=== PATIENT | female | born 1935 | race African-American/Black ===

== ENCOUNTER 2017-01-25 05:50 | Day surgery (SDC) | payer MEDICARE, MEDICAID ==
[~2017-01-25] VITALS: Ht 158.8 cm; Wt 87.5 kg
[~2017-01-25 05:50] MED LIST: ATOR20TA65 PO; CARV12.545 PO; DILT60TA35 PO; DIPH25CA83 PO; FOLI1TAB63 PO; INSLAN SQ; INSU100I7 SQ; MEDR10TA PO; MEDR10TA11 PO; METO-293 PO; OMEP20TA80 PO; REPA1TAB5 PO; SEVE800T PO
[2017-01-25] MEDS ORDERED: SODIUM CHLORIDE 0.9% 500 ML IV ONE (06:45)
[2017-01-25 06:46] LABS: BASOPHILS % 0.6 % (0.0-2.0); EOSINOPHILS % 1.7 % (0.0-5.0); HEMATOCRIT. 29.4 % (36.0-48.0); HEMOGLOBIN. 9.8 g/dL (12.0-16.0); LYMPHOCYTES % 13.8 % (20.0-50.0); MEAN CORPUSCULAR HEMOGLOBIN 31.6 pg (28.0-32.0); MEAN CORPUSCULAR HGB CONC 33.1 g/dL (31.0-37.0); MEAN CORPUSCULAR VOLUME 95.5 fL (81.0-99.0); MEAN PLATELET VOLUME 8.3 fl (7.4-10.4); MONOCYTES % 9.9 % (2.0-8.0); PLATELET 179 x1000/uL (130-400); RED BLOOD CELL COUNT 3.08 mill/uL (4.2-5.4); RED CELL DISTRIBUTION WIDTH 14.4 % (11.6-14.6)
[2017-01-25 06:51] LABS: PARTIAL THROMBOPLASTIN TIME 24.5 sec (24.0-34.0); PROTHROMBIN TIME 10.7 sec
[2017-01-25] MEDS ORDERED: SUCCINYLCHOLINE CHLORIDE 200MG/10ML VIAL IV ONE (07:00)
[2017-01-25] MEDS ORDERED: LIDOCAINE HCL 1% 20ML VIAL (Pyxis) INJ ONE (07:01)
[2017-01-25] MEDS ORDERED: PROPOFOL 200MG/20ML VIAL IV ONE (07:01)
[2017-01-25] MEDS ORDERED: FENTANYL CITRATE/PF 50MCG/ML 2ML VIAL ONE (07:01)
[2017-01-25 07:06] LABS: HCG SCREEN NEGATIVE
[2017-01-25 07:10] LABS: ALANINE AMINOTRANSFERASE 15 IU/L (13-61); ALBUMIN 3.5 g/dL (3.4-5.0); ANION GAP 13; CALCIUM 9.2 mg/dL (8.5-10.1); CARBON DIOXIDE 35 mEq/L (21-32); CHLORIDE 99 mEq/L (98-107); INDEX HEMOLYSI 1 (1-3); INDEX ICTERIC 1 (1-4); INDEX LIPEMIC 1 (1-3); UREA NITROGEN BLOOD 35 mg/dL (7-21); eGFR 8 mL/min (>60)
[2017-01-25] MEDS ORDERED: PHENYLEPHRINE HCL 10 MG/ML 1ML (IV VIAL) IV ONE (07:28)
[2017-01-25] MEDS ORDERED: ONDANSETRON HCL 4MG/2ML VIAL IV PRN (07:30)
[2017-01-25] MEDS ORDERED: HYDROMORPHONE HCL/PF 2MG/ML CPJ IV PRN (07:30)
[2017-01-25] MEDS ORDERED: MIDAZOLAM HCL 2 MG/2 ML VIAL ONE (07:42)
[2017-01-25] MEDS ORDERED: GABA-529 PO (09:28)
== END 2017-01-25 11:10 | disposition home or self-care (01) ==
LOC: OR 05:50
PROVIDERS: ATTEND Obstetrics & Gynecology
DX: D25.0 Submucous leiomyoma of uterus (principal); I12.0 Hypertensive chronic kidney disease with stage 5 chronic kidney disease or end stage renal disease; N85.00 Endometrial hyperplasia, unspecified; N18.6 End stage renal disease; M19.90 Unspecified osteoarthritis, unspecified site; I50.9 Heart failure, unspecified; G89.29 Other chronic pain; D64.9 Anemia, unspecified; E11.9 Type 2 diabetes mellitus without complications
CPT/HCPCS: 36415; 58558; 80053; 82962; 84703; 85025; 85610; 85730; 86850; 86900; 86901; 88305; 93005; J0330; J2250; J2370; J3010; J3490; J7040; J2704

== ENCOUNTER 2017-02-19 21:50 | Inpatient (IN) | payer MEDICARE, MEDICAID ==
[~2017-02-19] VITALS: Ht 157.5 cm; Wt 87.5 kg
[~2017-02-19 21:50] MED LIST changes: +GABA-529 PO; -MEDR10TA11 PO
[2017-02-19 22:00] VITALS: BP 115/64
[2017-02-19 22:36] VITALS: BP 115/64
[2017-02-19] MEDS ORDERED: ONDANSETRON HCL 4MG/2ML VIAL IV PRN (23:45)
[2017-02-19] MEDS ORDERED: DEXTROSE 50% WATER 50ML SYRINGE IV PRN (23:45)
[2017-02-19] MEDS ORDERED: DOCUSATE SODIUM 100MG CAPSULE PO PRN (23:45)
[2017-02-20] MEDS: BLOOD SUGAR DIAGNOSTIC STRIP TEST SCH ×4 (06:27→21:52)
[2017-02-20] MEDS: INSULIN LISPRO 100 UNITS/ML SUBCUT SCH ×3 (07:00→17:00)
[2017-02-20 07:18] LABS: ALANINE AMINOTRANSFERASE 14 IU/L (13-61); ALBUMIN 3.1 g/dL (3.4-5.0); ANION GAP 17; CALCIUM 8.4 mg/dL (8.5-10.1); CARBON DIOXIDE 25 mEq/L (21-32); CHLORIDE 101 mEq/L (98-107); INDEX HEMOLYSI 1 (1-3); INDEX ICTERIC 1 (1-4); INDEX LIPEMIC 1 (1-3); UREA NITROGEN BLOOD 36 mg/dL (7-21); eGFR 8 mL/min (>60)
[2017-02-20 07:27] LABS: BASOPHILS % 0.7 % (0.0-2.0); EOSINOPHILS % 1.7 % (0.0-5.0); HEMATOCRIT. 30.2 % (36.0-48.0); HEMOGLOBIN. 10.1 g/dL (12.0-16.0); LYMPHOCYTES % 11.1 % (20.0-50.0); MEAN CORPUSCULAR HEMOGLOBIN 30.7 pg (28.0-32.0); MEAN CORPUSCULAR HGB CONC 33.6 g/dL (31.0-37.0); MEAN CORPUSCULAR VOLUME 91.4 fL (81.0-99.0); MEAN PLATELET VOLUME 8.8 fl (7.4-10.4); MONOCYTES % 9.9 % (2.0-8.0); NEUTROPHILS % 76.6 % (40.0-76.0); PLATELET 173 x1000/uL (130-400)
[2017-02-20] MEDS ORDERED: MEDROXYPROGESTERONE ACET 5MG TABLET PO SCH (09:00)
[2017-02-20] MEDS: ASPIRIN 81MG EC TABLET PO SCH (09:06)
[2017-02-20] MEDS: OMEPRAZOLE 20MG CAPSULE EXTENDED RELEASE PO SCH ×2 (09:06→22:20)
[2017-02-20] MEDS: SEVELAMER CARBONATE 800 MG TABLET PO SCH ×3 (09:06→17:21)
[2017-02-20] MEDS: REPAGLINIDE 1MG TABLET PO SCH ×3 (09:07→17:21)
[2017-02-20] MEDS: AMIODARONE HCL 200 MG TABLET PO SCH ×2 (09:07→22:20)
[2017-02-20] MEDS: CARVEDILOL 12.5MG TABLET PO SCH ×2 (09:07→22:21)
[2017-02-20 15:39] LABS: AMMONIA 33 uMol/L (<32); INDEX HEMOLYSI 1 (1-3)
[2017-02-20 20:00] VITALS: BP 118/56
[2017-02-20] MEDS: GABAPENTIN 100MG CAPSULE PO SCH (22:20)
[2017-02-20] MEDS: ATORVASTATIN CALCIUM 20MG TABLET PO SCH (22:20)
[2017-02-21] MEDS: BLOOD SUGAR DIAGNOSTIC STRIP TEST SCH ×4 (06:31→21:00)
[2017-02-21 07:01] LABS: CALCIUM 8.8 mg/dL (8.5-10.1); PHOSPHORUS 4.9 mg/dL (2.5-4.9)
[2017-02-21 07:12] LABS: BASOPHILS % 0.5 % (0.0-2.0); EOSINOPHILS % 1.8 % (0.0-5.0); HEMATOCRIT. 31.2 % (36.0-48.0); HEMOGLOBIN. 10.4 g/dL (12.0-16.0); LYMPHOCYTES % 11.1 % (20.0-50.0); MEAN CORPUSCULAR HEMOGLOBIN 30.8 pg (28.0-32.0); MEAN CORPUSCULAR HGB CONC 33.3 g/dL (31.0-37.0); MEAN CORPUSCULAR VOLUME 92.4 fL (81.0-99.0); MEAN PLATELET VOLUME 8.9 fl (7.4-10.4); MONOCYTES % 10.7 % (2.0-8.0); NEUTROPHILS % 75.9 % (40.0-76.0); PLATELET 179 x1000/uL (130-400); RED BLOOD CELL COUNT 3.37 mill/uL (4.2-5.4); RED CELL DISTRIBUTION WIDTH 15.5 % (11.6-14.6); WHITE BLOOD COUNT 6.4 x1000/uL (4.5-11.0)
[2017-02-21 08:00] VITALS: BP 123/59
[2017-02-21] MEDS: AMIODARONE HCL 200 MG TABLET PO SCH (08:25)
[2017-02-21] MEDS: MEDROXYPROGESTERONE ACET 5MG TABLET PO SCH (08:25)
[2017-02-21] MEDS: REPAGLINIDE 1MG TABLET PO SCH ×3 (08:26→17:53)
[2017-02-21] MEDS: OMEPRAZOLE 20MG CAPSULE EXTENDED RELEASE PO SCH (08:26)
[2017-02-21] MEDS: SEVELAMER CARBONATE 800 MG TABLET PO SCH ×3 (08:26→17:53)
[2017-02-21] MEDS: FOLIC ACID/VITAMIN B COMP W-C TABLET PO SCH (08:26)
[2017-02-21] MEDS: ASPIRIN 81MG EC TABLET PO SCH (08:26)
[2017-02-21] MEDS: INSULIN LISPRO 100 UNITS/ML SUBCUT SCH ×3 (08:32→18:02)
[2017-02-21] MEDS: CARVEDILOL 12.5MG TABLET PO SCH (08:33)
[2017-02-21 20:00] VITALS: BP 103/49
[2017-02-22] MEDS: OMEPRAZOLE 20MG CAPSULE EXTENDED RELEASE PO SCH ×3 (00:03→21:36)
[2017-02-22] MEDS: GABAPENTIN 100MG CAPSULE PO SCH (00:03)
[2017-02-22] MEDS: EPOETIN ALFA 10000UNITS/ML VIAL SUBCUT SCH (00:03)
[2017-02-22] MEDS: ATORVASTATIN CALCIUM 20MG TABLET PO SCH ×2 (00:03→21:36)
[2017-02-22] MEDS: AMIODARONE HCL 200 MG TABLET PO SCH ×2 (00:03→08:26)
[2017-02-22] MEDS: CARVEDILOL 12.5MG TABLET PO SCH ×3 (00:04→21:00)
[2017-02-22] MEDS: INSULIN DETEMIR UD 100 UNITS/ML SYR SUBCUT SCH ×2 (00:10→21:37)
[2017-02-22 06:08] LABS: ANION GAP 14; CARBON DIOXIDE 29 mEq/L (21-32); CHLORIDE 100 mEq/L (98-107); INDEX HEMOLYSI 1 (1-3); INDEX ICTERIC 1 (1-4); INDEX LIPEMIC 1 (1-3); PHOSPHORUS 3.5 mg/dL (2.5-4.9); TOTAL IRON BINDING CAPACITY 195 ug/dL (250-450); TRIGLYCERIDE 50 mg/dL (0-150); eGFR 9 mL/min (>60)
[2017-02-22] MEDS: BLOOD SUGAR DIAGNOSTIC STRIP TEST SCH ×4 (06:26→21:36)
[2017-02-22 06:35] LABS: BASOPHILS % 0.5 % (0.0-2.0); EOSINOPHILS % 2.1 % (0.0-5.0); HEMATOCRIT. 29.1 % (36.0-48.0); HEMOGLOBIN. 9.6 g/dL (12.0-16.0); LYMPHOCYTES % 8.8 % (20.0-50.0); MEAN CORPUSCULAR HEMOGLOBIN 30.4 pg (28.0-32.0); MEAN CORPUSCULAR HGB CONC 32.8 g/dL (31.0-37.0); MEAN CORPUSCULAR VOLUME 92.6 fL (81.0-99.0); MEAN PLATELET VOLUME 8.7 fl (7.4-10.4); NEUTROPHILS % 78.6 % (40.0-76.0); PLATELET 167 x1000/uL (130-400); RED BLOOD CELL COUNT 3.14 mill/uL (4.2-5.4); RED CELL DISTRIBUTION WIDTH 15.3 % (11.6-14.6); WHITE BLOOD COUNT 5.6 x1000/uL (4.5-11.0)
[2017-02-22 06:45] LABS: CALCIUM 7.7 mg/dL (8.5-10.1); HDL CHOLESTEROL 31 mg/dL (40-59); IRON 39 ug/dL (50-175); LDL CHOLESTEROL 13 mg/dL (5-100); UREA NITROGEN BLOOD 28 mg/dL (7-21)
[2017-02-22 06:49] LABS: FOLIC ACID (FOLATE) SERUM 17.5 ng/mL (>5.38)
[2017-02-22 08:00] VITALS: BP 101/50
[2017-02-22] MEDS: SEVELAMER CARBONATE 800 MG TABLET PO SCH ×3 (08:26→16:40)
[2017-02-22] MEDS: FOLIC ACID/VITAMIN B COMP W-C TABLET PO SCH (08:26)
[2017-02-22] MEDS: ASPIRIN 81MG EC TABLET PO SCH (08:26)
[2017-02-22] MEDS: MEDROXYPROGESTERONE ACET 5MG TABLET PO SCH (08:27)
[2017-02-22] MEDS: REPAGLINIDE 1MG TABLET PO SCH ×3 (08:27→16:41)
[2017-02-22] MEDS: INSULIN LISPRO 100 UNITS/ML SUBCUT SCH ×3 (08:35→18:07)
[2017-02-22 20:00] VITALS: BP 103/41
[2017-02-23] MEDS: ACETAMINOPHEN 325MG TABLET PO PRN (05:03)
[2017-02-23] MEDS: BLOOD SUGAR DIAGNOSTIC STRIP TEST SCH ×4 (06:30→21:00)
[2017-02-23 07:06] LABS: BASOPHILS % 0.5 % (0.0-2.0); EOSINOPHILS % 1.9 % (0.0-5.0); HEMATOCRIT. 29.3 % (36.0-48.0); HEMOGLOBIN. 9.7 g/dL (12.0-16.0); LYMPHOCYTES % 11.8 % (20.0-50.0); MEAN CORPUSCULAR HEMOGLOBIN 30.8 pg (28.0-32.0); MEAN CORPUSCULAR HGB CONC 33.1 g/dL (31.0-37.0); MEAN CORPUSCULAR VOLUME 93.1 fL (81.0-99.0); MONOCYTES % 11.4 % (2.0-8.0); NEUTROPHILS % 74.4 % (40.0-76.0); PLATELET 166 x1000/uL (130-400); RED BLOOD CELL COUNT 3.15 mill/uL (4.2-5.4); RED CELL DISTRIBUTION WIDTH 15.4 % (11.6-14.6)
[2017-02-23 07:21] LABS: AMMONIA 45 uMol/L (<32)
[2017-02-23 07:22] LABS: CALCIUM 7.9 mg/dL (8.5-10.1); MAGNESIUM 2.3 mg/dL (1.8-2.4)
[2017-02-23 08:00] VITALS: BP 112/50
[2017-02-23] MEDS: INSULIN LISPRO 100 UNITS/ML SUBCUT SCH ×3 (08:45→17:00)
[2017-02-23] MEDS: OMEPRAZOLE 20MG CAPSULE EXTENDED RELEASE PO SCH ×2 (08:46→22:06)
[2017-02-23] MEDS: ASPIRIN 81MG EC TABLET PO SCH (08:46)
[2017-02-23] MEDS: REPAGLINIDE 1MG TABLET PO SCH ×3 (08:46→16:30)
[2017-02-23] MEDS: CARVEDILOL 12.5MG TABLET PO SCH ×2 (08:46→21:00)
[2017-02-23] MEDS: MEDROXYPROGESTERONE ACET 5MG TABLET PO SCH (08:46)
[2017-02-23] MEDS: SEVELAMER CARBONATE 800 MG TABLET PO SCH ×3 (08:46→16:30)
[2017-02-23] MEDS: FOLIC ACID/VITAMIN B COMP W-C TABLET PO SCH (08:46)
[2017-02-23] MEDS ORDERED: AMIODARONE HCL 200 MG TABLET PO SCH (09:00)
[2017-02-23] MEDS: LACTULOSE 20G/30ML UDC PO SCH ×2 (14:00→22:00)
[2017-02-23 19:15] LABS: T4 FREE 0.97 ng/dL (0.76-1.46)
[2017-02-23 20:00] VITALS: BP 106/52
[2017-02-23] MEDS: ATORVASTATIN CALCIUM 20MG TABLET PO SCH (22:05)
[2017-02-23] MEDS: EPOETIN ALFA 10000UNITS/ML VIAL SUBCUT SCH (22:06)
[2017-02-23] MEDS: INSULIN DETEMIR UD 100 UNITS/ML SYR SUBCUT SCH (22:18)
[2017-02-24] MEDS: LACTULOSE 20G/30ML UDC PO SCH ×3 (06:00→22:03)
[2017-02-24 06:42] LABS: AMMONIA 33 uMol/L (<32)
[2017-02-24] MEDS: INSULIN LISPRO 100 UNITS/ML SUBCUT SCH ×5 (07:00→17:43)
[2017-02-24] MEDS: BLOOD SUGAR DIAGNOSTIC STRIP TEST SCH ×4 (07:05→21:00)
[2017-02-24 08:00] VITALS: BP 132/64
[2017-02-24] MEDS: MEDROXYPROGESTERONE ACET 5MG TABLET PO SCH (09:06)
[2017-02-24] MEDS: FOLIC ACID/VITAMIN B COMP W-C TABLET PO SCH (09:06)
[2017-02-24] MEDS: SEVELAMER CARBONATE 800 MG TABLET PO SCH ×3 (09:07→17:03)
[2017-02-24] MEDS: OMEPRAZOLE 20MG CAPSULE EXTENDED RELEASE PO SCH ×2 (09:07→22:01)
[2017-02-24] MEDS: REPAGLINIDE 1MG TABLET PO SCH ×3 (09:07→17:03)
[2017-02-24] MEDS: ASPIRIN 81MG EC TABLET PO SCH (09:07)
[2017-02-24] MEDS: CARVEDILOL 12.5MG TABLET PO SCH ×2 (09:07→21:00)
[2017-02-24] MEDS ORDERED: LOPERAMIDE HCL 2MG CAPSULE PO PRN (16:15)
[2017-02-24 20:00] VITALS: BP 112/59
[2017-02-24] MEDS: ATORVASTATIN CALCIUM 20MG TABLET PO SCH (22:01)
[2017-02-24] MEDS: INSULIN DETEMIR UD 100 UNITS/ML SYR SUBCUT SCH (22:07)
[2017-02-25 05:35] LABS: BASOPHILS % 0.6 % (0.0-2.0); EOSINOPHILS % 2.4 % (0.0-5.0); HEMOGLOBIN. 8.8 g/dL (12.0-16.0); LYMPHOCYTES % 12.2 % (20.0-50.0); MEAN CORPUSCULAR HEMOGLOBIN 31.1 pg (28.0-32.0); MEAN CORPUSCULAR HGB CONC 33.9 g/dL (31.0-37.0); MEAN CORPUSCULAR VOLUME 91.8 fL (81.0-99.0); MEAN PLATELET VOLUME 8.8 fl (7.4-10.4); MONOCYTES % 9.6 % (2.0-8.0); NEUTROPHILS % 75.2 % (40.0-76.0); PLATELET 132 x1000/uL (130-400); RED BLOOD CELL COUNT 2.83 mill/uL (4.2-5.4); RED CELL DISTRIBUTION WIDTH 15.1 % (11.6-14.6); WHITE BLOOD COUNT 6.3 x1000/uL (4.5-11.0)
[2017-02-25 05:56] LABS: INDEX HEMOLYSI 2 (1-3)
[2017-02-25 05:57] LABS: CHLORIDE 98 mEq/L (98-107); INDEX HEMOLYSI 1 (1-3); INDEX ICTERIC 1 (1-4); INDEX LIPEMIC 1 (1-3)
[2017-02-25 05:58] LABS: AMMONIA 32 uMol/L (<32)
[2017-02-25] MEDS: LACTULOSE 20G/30ML UDC PO SCH ×3 (05:59→22:14)
[2017-02-25] MEDS: BLOOD SUGAR DIAGNOSTIC STRIP TEST SCH ×4 (05:59→21:00)
[2017-02-25 06:05] LABS: ALANINE AMINOTRANSFERASE 11 IU/L (13-61); ANION GAP 16; CALCIUM 8.3 mg/dL (8.5-10.1); CARBON DIOXIDE 27 mEq/L (21-32); UREA NITROGEN BLOOD 38 mg/dL (7-21); eGFR 6 mL/min (>60)
[2017-02-25 08:00] VITALS: BP 133/56
[2017-02-25] MEDS: MEDROXYPROGESTERONE ACET 5MG TABLET PO SCH (08:51)
[2017-02-25] MEDS: REPAGLINIDE 1MG TABLET PO SCH ×3 (08:51→16:38)
[2017-02-25] MEDS: ASPIRIN 81MG EC TABLET PO SCH (08:51)
[2017-02-25] MEDS: OMEPRAZOLE 20MG CAPSULE EXTENDED RELEASE PO SCH ×2 (08:51→22:13)
[2017-02-25] MEDS: SEVELAMER CARBONATE 800 MG TABLET PO SCH ×3 (08:52→16:38)
[2017-02-25] MEDS: CARVEDILOL 12.5MG TABLET PO SCH ×2 (08:52→22:14)
[2017-02-25] MEDS: FOLIC ACID/VITAMIN B COMP W-C TABLET PO SCH (08:52)
[2017-02-25] MEDS ORDERED: PARICALCITOL 5 MCG/ML 1ML IV SCH (09:00)
[2017-02-25] MEDS: INSULIN LISPRO 100 UNITS/ML SUBCUT SCH ×3 (09:00→16:44)
[2017-02-25 13:11] LABS: 25-HYDROXY VITAMIN D3 6.9 ng/mL (.)
[2017-02-25] MEDS ORDERED: ERGOCALCIFEROL 50000UNITS CAPSULE PO SCH (15:00)
[2017-02-25] MEDS ORDERED: CALCITRIOL 0.25MCG CAPSULE PO SCH (16:30)
[2017-02-25 20:00] VITALS: BP 125/60
[2017-02-25] MEDS: INSULIN DETEMIR UD 100 UNITS/ML SYR SUBCUT SCH (22:00)
[2017-02-25] MEDS: ATORVASTATIN CALCIUM 20MG TABLET PO SCH (22:13)
[2017-02-26] MEDS: LACTULOSE 20G/30ML UDC PO SCH (06:00)
[2017-02-26 06:48] LABS: BASOPHILS % 0.7 % (0.0-2.0); EOSINOPHILS % 2.4 % (0.0-5.0); HEMATOCRIT. 27.1 % (36.0-48.0); MEAN CORPUSCULAR HEMOGLOBIN 30.8 pg (28.0-32.0); MEAN CORPUSCULAR HGB CONC 33.3 g/dL (31.0-37.0); MEAN CORPUSCULAR VOLUME 92.3 fL (81.0-99.0); MONOCYTES % 9.8 % (2.0-8.0); NEUTROPHILS % 77.1 % (40.0-76.0); PLATELET 128 x1000/uL (130-400); RED BLOOD CELL COUNT 2.93 mill/uL (4.2-5.4); RED CELL DISTRIBUTION WIDTH 15.5 % (11.6-14.6); WHITE BLOOD COUNT 6.2 x1000/uL (4.5-11.0)
[2017-02-26] MEDS: BLOOD SUGAR DIAGNOSTIC STRIP TEST SCH ×4 (07:14→21:00)
[2017-02-26 07:27] LABS: CALCIUM 8.7 mg/dL (8.5-10.1)
[2017-02-26 09:00] VITALS: BP 104/43
[2017-02-26] MEDS: CARVEDILOL 12.5MG TABLET PO SCH ×2 (09:00→22:34)
[2017-02-26] MEDS: OMEPRAZOLE 20MG CAPSULE EXTENDED RELEASE PO SCH ×2 (09:15→22:35)
[2017-02-26] MEDS: REPAGLINIDE 1MG TABLET PO SCH ×3 (09:15→17:19)
[2017-02-26] MEDS: ASPIRIN 81MG EC TABLET PO SCH (09:15)
[2017-02-26] MEDS: FOLIC ACID/VITAMIN B COMP W-C TABLET PO SCH (09:15)
[2017-02-26] MEDS: SEVELAMER CARBONATE 800 MG TABLET PO SCH ×3 (09:15→17:19)
[2017-02-26] MEDS: MEDROXYPROGESTERONE ACET 5MG TABLET PO SCH (09:16)
[2017-02-26] MEDS: INSULIN LISPRO 100 UNITS/ML SUBCUT SCH ×3 (09:21→17:00)
[2017-02-26] MEDS: ACETAMINOPHEN 325MG TABLET PO PRN (11:38)
[2017-02-26] MEDS ORDERED: ACETAMINOPHEN WITH CODEINE 300/30MG TABLET PO PRN (17:45)
[2017-02-26] MEDS ORDERED: ACETAMINOPHEN 500MG TABLET PO PRN (17:45)
[2017-02-26 20:00] VITALS: BP 116/55
[2017-02-26] MEDS: INSULIN DETEMIR UD 100 UNITS/ML SYR SUBCUT SCH (22:00)
[2017-02-26] MEDS: EPOETIN ALFA 10000UNITS/ML VIAL SUBCUT SCH (22:35)
[2017-02-26] MEDS: ATORVASTATIN CALCIUM 20MG TABLET PO SCH (22:35)
[2017-02-27 06:52] LABS: AMMONIA 36 uMol/L (<32); INDEX HEMOLYSI 2 (1-3)
[2017-02-27] MEDS: INSULIN LISPRO 100 UNITS/ML SUBCUT SCH ×3 (07:00→17:47)
[2017-02-27 08:00] VITALS: BP 120/47
[2017-02-27] MEDS: OMEPRAZOLE 20MG CAPSULE EXTENDED RELEASE PO SCH ×2 (09:41→21:14)
[2017-02-27] MEDS: FOLIC ACID/VITAMIN B COMP W-C TABLET PO SCH (09:41)
[2017-02-27] MEDS: ASPIRIN 81MG EC TABLET PO SCH (09:41)
[2017-02-27] MEDS: CALCITRIOL 0.25MCG CAPSULE PO SCH (09:41)
[2017-02-27] MEDS: REPAGLINIDE 1MG TABLET PO SCH ×3 (09:41→16:50)
[2017-02-27] MEDS: CARVEDILOL 12.5MG TABLET PO SCH ×2 (09:43→21:14)
[2017-02-27] MEDS: MEDROXYPROGESTERONE ACET 5MG TABLET PO SCH (09:47)
[2017-02-27] MEDS: SEVELAMER CARBONATE 800 MG TABLET PO SCH ×3 (09:47→16:50)
[2017-02-27 10:28] LABS: T3 FREE 1.44 pg/ml (2.18-3.98); T4 FREE 1.1 ng/dL (0.76-1.46); THYROID STIMULATING HORMONE 4.2 uIU/mL (0.36-3.74)
[2017-02-27 10:45] LABS: AMMONIA 29 uMol/L (<32)
[2017-02-27 10:48] LABS: FOLIC ACID (FOLATE) SERUM 18.6 ng/mL (>5.38)
[2017-02-27] MEDS: BLOOD SUGAR DIAGNOSTIC STRIP TEST SCH ×3 (11:21→20:57)
[2017-02-27 20:00] VITALS: BP 123/58
[2017-02-27] MEDS: INSULIN DETEMIR UD 100 UNITS/ML SYR SUBCUT SCH (21:14)
[2017-02-27] MEDS: ATORVASTATIN CALCIUM 20MG TABLET PO SCH (21:14)
[2017-02-28] MEDS: BLOOD SUGAR DIAGNOSTIC STRIP TEST SCH ×4 (06:27→21:51)
[2017-02-28 07:00] LABS: BASOPHILS % 0.8 % (0.0-2.0); EOSINOPHILS % 2.3 % (0.0-5.0); HEMATOCRIT. 26.6 % (36.0-48.0); HEMOGLOBIN. 8.8 g/dL (12.0-16.0); LYMPHOCYTES % 12.9 % (20.0-50.0); MEAN CORPUSCULAR HEMOGLOBIN 30.6 pg (28.0-32.0); MEAN CORPUSCULAR VOLUME 92.9 fL (81.0-99.0); MEAN PLATELET VOLUME 9.2 fl (7.4-10.4); MONOCYTES % 13.5 % (2.0-8.0); NEUTROPHILS % 70.5 % (40.0-76.0); PLATELET 122 x1000/uL (130-400); RED BLOOD CELL COUNT 2.87 mill/uL (4.2-5.4); RED CELL DISTRIBUTION WIDTH 15.2 % (11.6-14.6); WHITE BLOOD COUNT 4.8 x1000/uL (4.5-11.0)
[2017-02-28] MEDS: INSULIN LISPRO 100 UNITS/ML SUBCUT SCH ×3 (07:00→17:00)
[2017-02-28 07:44] LABS: CALCIUM 8.7 mg/dL (8.5-10.1)
[2017-02-28 08:00] VITALS: BP 98/50
[2017-02-28] MEDS: CARVEDILOL 12.5MG TABLET PO SCH ×2 (08:28→21:32)
[2017-02-28] MEDS: SEVELAMER CARBONATE 800 MG TABLET PO SCH ×3 (08:59→16:12)
[2017-02-28] MEDS: ASPIRIN 81MG EC TABLET PO SCH (08:59)
[2017-02-28] MEDS: MEDROXYPROGESTERONE ACET 5MG TABLET PO SCH (09:00)
[2017-02-28] MEDS: FOLIC ACID/VITAMIN B COMP W-C TABLET PO SCH (09:00)
[2017-02-28] MEDS: OMEPRAZOLE 20MG CAPSULE EXTENDED RELEASE PO SCH ×2 (09:00→21:31)
[2017-02-28] MEDS: REPAGLINIDE 1MG TABLET PO SCH ×3 (09:00→16:12)
[2017-02-28] MEDS ORDERED: ACETAMINOPHEN WITH CODEINE 300/30MG TABLET PO PRN (18:15)
[2017-02-28 20:00] VITALS: BP 130/6
[2017-02-28] MEDS: ATORVASTATIN CALCIUM 20MG TABLET PO SCH (21:31)
[2017-02-28] MEDS: EPOETIN ALFA 10000UNITS/ML VIAL SUBCUT SCH (21:31)
[2017-02-28] MEDS: EPOETIN ALFA 4000UNITS/ML VIAL SUBCUT SCH (21:31)
[2017-02-28] MEDS: INSULIN DETEMIR UD 100 UNITS/ML SYR SUBCUT SCH (21:53)
[2017-03-01] MEDS: BLOOD SUGAR DIAGNOSTIC STRIP TEST SCH ×4 (06:44→20:36)
[2017-03-01] MEDS: INSULIN LISPRO 100 UNITS/ML SUBCUT SCH ×3 (07:00→17:14)
[2017-03-01 07:59] VITALS: BP 109/45
[2017-03-01] MEDS: CARVEDILOL 12.5MG TABLET PO SCH ×2 (09:00→21:54)
[2017-03-01] MEDS: FOLIC ACID/VITAMIN B COMP W-C TABLET PO SCH (09:07)
[2017-03-01] MEDS: MEDROXYPROGESTERONE ACET 5MG TABLET PO SCH (09:08)
[2017-03-01] MEDS: ASPIRIN 81MG EC TABLET PO SCH (09:08)
[2017-03-01] MEDS: SEVELAMER CARBONATE 800 MG TABLET PO SCH ×3 (09:08→16:33)
[2017-03-01] MEDS: CALCITRIOL 0.25MCG CAPSULE PO SCH (09:08)
[2017-03-01] MEDS: OMEPRAZOLE 20MG CAPSULE EXTENDED RELEASE PO SCH ×2 (09:11→21:53)
[2017-03-01 20:00] VITALS: BP 118/58
[2017-03-01] MEDS ORDERED: TEMAZEPAM 15MG CAPSULE PO PRN (21:00)
[2017-03-01] MEDS: ATORVASTATIN CALCIUM 20MG TABLET PO SCH (21:53)
[2017-03-01] MEDS: INSULIN DETEMIR UD 100 UNITS/ML SYR SUBCUT SCH (21:55)
[2017-03-02] MEDS: BLOOD SUGAR DIAGNOSTIC STRIP TEST SCH ×4 (06:08→21:00)
[2017-03-02] MEDS: OMEPRAZOLE 20MG CAPSULE EXTENDED RELEASE PO SCH ×2 (06:20→22:42)
[2017-03-02 06:58] LABS: BASOPHILS % 0.9 % (0.0-2.0); HEMATOCRIT. 26.1 % (36.0-48.0); HEMOGLOBIN. 8.7 g/dL (12.0-16.0); LYMPHOCYTES % 14.4 % (20.0-50.0); MEAN CORPUSCULAR HGB CONC 33.2 g/dL (31.0-37.0); MEAN CORPUSCULAR VOLUME 93.5 fL (81.0-99.0); MEAN PLATELET VOLUME 8.9 fl (7.4-10.4); MONOCYTES % 10.9 % (2.0-8.0); NEUTROPHILS % 70.8 % (40.0-76.0); PLATELET 119 x1000/uL (130-400); RED BLOOD CELL COUNT 2.79 mill/uL (4.2-5.4); RED CELL DISTRIBUTION WIDTH 16.1 % (11.6-14.6); WHITE BLOOD COUNT 5.6 x1000/uL (4.5-11.0)
[2017-03-02] MEDS: INSULIN LISPRO 100 UNITS/ML SUBCUT SCH ×3 (07:00→17:35)
[2017-03-02 08:00] VITALS: BP 128/62
[2017-03-02 08:52] LABS: CALCIUM 8.4 mg/dL (8.5-10.1); PHOSPHORUS 3.7 mg/dL (2.5-4.9); THYROID STIMULATING HORMONE 3.9 uIU/mL (0.36-3.74)
[2017-03-02] MEDS: CARVEDILOL 12.5MG TABLET PO SCH ×2 (09:00→22:43)
[2017-03-02] MEDS: FOLIC ACID/VITAMIN B COMP W-C TABLET PO SCH (09:18)
[2017-03-02] MEDS: ASPIRIN 81MG EC TABLET PO SCH (09:18)
[2017-03-02] MEDS: SEVELAMER CARBONATE 800 MG TABLET PO SCH ×3 (09:18→17:28)
[2017-03-02] MEDS: MEDROXYPROGESTERONE ACET 5MG TABLET PO SCH (09:18)
[2017-03-02 20:00] VITALS: BP 141/66
[2017-03-02] MEDS: INSULIN DETEMIR UD 100 UNITS/ML SYR SUBCUT SCH (22:00)
[2017-03-02] MEDS: ATORVASTATIN CALCIUM 20MG TABLET PO SCH (22:42)
[2017-03-02] MEDS: EPOETIN ALFA 4000UNITS/ML VIAL SUBCUT SCH (22:42)
[2017-03-02] MEDS: EPOETIN ALFA 10000UNITS/ML VIAL SUBCUT SCH (22:42)
[2017-03-02] MEDS ORDERED: INSULIN DETEMIR UD 100 UNITS/ML SYR SUBCUT NR (23:15)
[2017-03-03] MEDS: BLOOD SUGAR DIAGNOSTIC STRIP TEST SCH ×2 (06:19→11:14)
[2017-03-03 08:00] VITALS: BP 111/49
[2017-03-03] MEDS: SEVELAMER CARBONATE 800 MG TABLET PO SCH ×2 (08:18→12:53)
[2017-03-03] MEDS: OMEPRAZOLE 20MG CAPSULE EXTENDED RELEASE PO SCH (08:18)
[2017-03-03] MEDS: ASPIRIN 81MG EC TABLET PO SCH (08:18)
[2017-03-03] MEDS: FOLIC ACID/VITAMIN B COMP W-C TABLET PO SCH (08:19)
[2017-03-03] MEDS: MEDROXYPROGESTERONE ACET 5MG TABLET PO SCH (08:19)
[2017-03-03] MEDS: INSULIN LISPRO 100 UNITS/ML SUBCUT SCH ×2 (08:24→12:55)
[2017-03-03] MEDS: CARVEDILOL 12.5MG TABLET PO SCH (08:25)
[2017-03-03 10:19] VITALS: BP 111/49
== END 2017-03-03 15:05 | disposition home health service (06) | DRG 91 ==
PROVIDERS: ADMIT Physical Medicine & Rehabilitation Spinal Cord Injury Medicine
PROC: 5A1D60Z (ICD-10-PCS; principal; 2017-02-21)
DX: G92 Toxic encephalopathy (principal); N18.6 End stage renal disease; J18.9 Pneumonia, unspecified organism; I13.2 Hypertensive heart and chronic kidney disease with heart failure and with stage 5 chronic kidney disease, or end stage renal disease; E46 Unspecified protein-calorie malnutrition; F05 Delirium due to known physiological condition; I42.0 Dilated cardiomyopathy; N25.81 Secondary hyperparathyroidism of renal origin; G72.81 Critical illness myopathy; N20.1 Calculus of ureter; I50.9 Heart failure, unspecified; G89.29 Other chronic pain; D64.9 Anemia, unspecified; R26.9 Unspecified abnormalities of gait and mobility; K44.9 Diaphragmatic hernia without obstruction or gangrene; I48.0 Paroxysmal atrial fibrillation; E11.22 Type 2 diabetes mellitus with diabetic chronic kidney disease; E11.42 Type 2 diabetes mellitus with diabetic polyneuropathy; M19.90 Unspecified osteoarthritis, unspecified site; E55.9 Vitamin D deficiency, unspecified; F41.9 Anxiety disorder, unspecified; I27.2 Other secondary pulmonary hypertension; M48.06 Spinal stenosis, lumbar region; K80.20 Calculus of gallbladder without cholecystitis without obstruction; D69.6 Thrombocytopenia, unspecified; E11.649 Type 2 diabetes mellitus with hypoglycemia without coma; E27.9 Disorder of adrenal gland, unspecified; E66.9 Obesity, unspecified; F32.9 Major depressive disorder, single episode, unspecified; G47.00 Insomnia, unspecified; N28.1 Cyst of kidney, acquired; T46.2X5A Adverse effect of other antidysrhythmic drugs, initial encounter; Z95.810 Presence of automatic (implantable) cardiac defibrillator; Z68.35 Body mass index [BMI] 35.0-35.9, adult; Z87.891 Personal history of nicotine dependence; Z86.73 Personal history of transient ischemic attack (TIA), and cerebral infarction without residual deficits; Z99.2 Dependence on renal dialysis
CPT/HCPCS: 36415; 70450; 80048; 80053; 80061; 82140; 82306; 82607; 82728; 82746; 82962; 83036; 83540; 83550; 83735; 83970; 84100; 84132; 84134; 84439; 84443; 84481; 84630; 85018; 85025; 92523; 92610; 93005; 93970; 94640; 97110; 97116; 97150; 97163; 97167; 97530; 97532; 97535; A6261; J0885; J1815; J2405; J7030

== ENCOUNTER 2017-12-17 14:27 | Emergency (ER) | payer MEDICARE, MEDICAID ==
[~2017-12-17] VITALS: Ht 157.5 cm; Wt 86.0 kg
[~2017-12-17 14:27] MED LIST changes: +ASPI-1159 PO; -DILT60TA35 PO; +OMEP20TA2 PO; -OMEP20TA80 PO; +REN800 PO; -SEVE800T PO
[2017-12-17] MEDS ORDERED: MORPHINE SULFATE 2 MG/ML CPJ (NOT FOR IM USE) IV ONE (15:30)
[2017-12-17 15:43] LABS: BASOPHILS % 0.7 % (0.0-2.0); EOSINOPHILS % 2.2 % (0.0-5.0); HEMATOCRIT. 34.4 % (36.0-48.0); HEMOGLOBIN. 11.1 g/dL (12.0-16.0); LYMPHOCYTES % 14.8 % (20.0-50.0); MEAN CORPUSCULAR HEMOGLOBIN 30.6 pg (28.0-32.0); MEAN PLATELET VOLUME 10.2 fl (7.4-10.4); MONOCYTES % 10.5 % (2.0-8.0); NEUTROPHILS % 71.8 % (40.0-76.0); PLATELET 111 x1000/uL (130-400); RED BLOOD CELL COUNT 3.62 mill/uL (4.2-5.4); RED CELL DISTRIBUTION WIDTH 16.5 % (11.6-14.6)
[2017-12-17 15:50] LABS: CHLORIDE 96 mEq/L (98-107); INR 1.1; PROTHROMBIN TIME 11.4 sec (9.4-11.6)
[2017-12-17 18:28] VITALS: BP 101/55
== END 2017-12-17 19:19 | disposition home or self-care (01) ==
LOC: ER 15:27
DX: K80.20 Calculus of gallbladder without cholecystitis without obstruction (principal); R10.9 Unspecified abdominal pain; E11.22 Type 2 diabetes mellitus with diabetic chronic kidney disease; I12.0 Hypertensive chronic kidney disease with stage 5 chronic kidney disease or end stage renal disease; N18.6 End stage renal disease; E27.9 Disorder of adrenal gland, unspecified; N20.0 Calculus of kidney; N28.1 Cyst of kidney, acquired; K40.90 Unilateral inguinal hernia, without obstruction or gangrene, not specified as recurrent; Z79.4 Long term (current) use of insulin; Z99.2 Dependence on renal dialysis; Z79.82 Long term (current) use of aspirin; Z96.649 Presence of unspecified artificial hip joint
CPT/HCPCS: 36415; 74176; 80053; 83690; 85025; 85610; 96374; 99285; J2270

== ENCOUNTER 2018-01-15 04:09 | Emergency (ER) | payer MEDICARE, MEDICAID ==
[~2018-01-15] VITALS: Ht 157.5 cm; Wt 75.0 kg
[2018-01-15] MEDS ORDERED: ONDANSETRON HCL 4MG/2ML VIAL IV STA (04:29)
[2018-01-15] MEDS ORDERED: SODIUM CHLORIDE 0.9% 1,000 ML IV ONE (04:29)
[2018-01-15] MEDS ORDERED: ASPIRIN 81MG TABLET PO ONE (04:30)
[2018-01-15 07:37] LABS: HEMATOCRIT. 28.9 % (36.0-48.0); HEMOGLOBIN. 9.2 g/dL (12.0-16.0); MEAN CORPUSCULAR HEMOGLOBIN 31.3 pg (28.0-32.0); MEAN CORPUSCULAR VOLUME 98.6 fL (81.0-99.0); MEAN PLATELET VOLUME 9.1 fl (7.4-10.4); PLATELET 105 x1000/uL (130-400); RED BLOOD CELL COUNT 2.93 mill/uL (4.2-5.4)
[2018-01-15 07:44] LABS: INR 1.2; PROTHROMBIN TIME 12.3 sec (9.4-11.6)
[2018-01-15 07:49] LABS: CHLORIDE 108 mEq/L (98-107); ETHANOL BLOOD < 10 mg/dL
[2018-01-15 08:04] LABS: NUCLEATED RED BLOOD CELLS 2 /100 WBC
[2018-01-15 08:11] LABS: PLATELET ESTIMATE DECREASED
[2018-01-15 14:30] VITALS: BP 107/67
== END 2018-01-15 14:55 | disposition home or self-care (01) ==
LOC: ER 04:09
DX: R14.0 Abdominal distension (gaseous) (principal); E11.9 Type 2 diabetes mellitus without complications; I10 Essential (primary) hypertension; Z79.4 Long term (current) use of insulin; Z79.82 Long term (current) use of aspirin; Z88.8 Allergy status to other drugs, medicaments and biological substances; Z91.013 Allergy to seafood; Z96.659 Presence of unspecified artificial knee joint; Z87.01 Personal history of pneumonia (recurrent)
CPT/HCPCS: 36415; 71045; 74176; 80053; 83605; 83690; 83880; 84484; 85025; 85610; 93005; 99285; G0482; J2405; J7030

== ENCOUNTER 2018-01-17 12:59 | Inpatient (IN) | payer MEDICARE, MEDICAID ==
[~2018-01-17] VITALS: Ht 157.5 cm; Wt 102.1 kg
[2018-01-17 15:27] LABS: HEMATOCRIT. 29.1 % (36.0-48.0); HEMOGLOBIN. 9.3 g/dL (12.0-16.0); MEAN CORPUSCULAR HEMOGLOBIN 31.8 pg (28.0-32.0); MEAN CORPUSCULAR VOLUME 99.1 fL (81.0-99.0); MEAN PLATELET VOLUME 9.6 fl (7.4-10.4); PLATELET 92 x1000/uL (130-400); RED BLOOD CELL COUNT 2.94 mill/uL (4.2-5.4)
[2018-01-17 15:31] LABS: INR 1.1; PARTIAL THROMBOPLASTIN TIME 26.6 sec (23.4-31.0)
[2018-01-17 15:35] LABS: CHLORIDE 106 mEq/L (98-107)
[2018-01-17 16:18] LABS: NUCLEATED RED BLOOD CELLS 5 /100 WBC; PLATELET ESTIMATE DECREASED
[2018-01-17] MEDS ORDERED: METHYLPREDNISOLONE SOD SUCC 40 MG/ML VIAL IV NR (17:15)
[2018-01-17] MEDS ORDERED: CEFTRIAXONE SODIUM 1 G/VIAL IV ONE (18:15)
[2018-01-17] MEDS: ATORVASTATIN CALCIUM 20MG TABLET PO SCH ×2 (21:00→22:44)
[2018-01-17 21:25] VITALS: BP 117/65
[2018-01-17 21:40] VITALS: BP 117/65
[2018-01-17] MEDS: GLIMEPIRIDE 2MG TABLET PO SCH ×2 (21:55→22:44)
[2018-01-17] MEDS ORDERED: MEDROXYPROGESTERONE ACET 5MG TABLET PO SCH (21:56)
[2018-01-17] MEDS ORDERED: LACTULOSE 20G/30ML UDC PO PRN (21:57)
[2018-01-17] MEDS ORDERED: DEXTROSE 50% WATER 50ML SYRINGE IV PRN (22:15)
[2018-01-17] MEDS: INSULIN GLARGINE UD 100 UNITS/ML SYR SUBCUT SCH (23:07)
[2018-01-17] MEDS: MEDROXYPROGESTERONE ACET 10 MG TABLET PO SCH (23:32)
[2018-01-17] MEDS: DILTIAZEM HCL 60MG TABLET PO SCH (23:32)
[2018-01-18] VITALS (24 sets, daily range): BP systolic 56–134; BP diastolic 25–99
[2018-01-18] MEDS: DILTIAZEM HCL 60MG TABLET PO SCH ×3 (05:54→17:48)
[2018-01-18] MEDS: BLOOD SUGAR DIAGNOSTIC STRIP TEST SCH ×4 (07:10→20:22)
[2018-01-18 07:25] LABS: HEMATOCRIT. 30.3 % (36.0-48.0); HEMOGLOBIN. 9.6 g/dL (12.0-16.0); MEAN CORPUSCULAR HEMOGLOBIN 31.7 pg (28.0-32.0); MEAN CORPUSCULAR VOLUME 100.1 fL (81.0-99.0); MEAN PLATELET VOLUME 9.4 fl (7.4-10.4); PLATELET 98 x1000/uL (130-400); RED BLOOD CELL COUNT 3.03 mill/uL (4.2-5.4); RED CELL DISTRIBUTION WIDTH 18.5 % (11.6-14.6)
[2018-01-18 08:04] LABS: PHOSPHORUS 8.1 mg/dL (2.5-4.9)
[2018-01-18] MEDS: GLIMEPIRIDE 2MG TABLET PO SCH (08:45)
[2018-01-18] MEDS: DOCUSATE SODIUM 250MG CAPSULE PO SCH (08:45)
[2018-01-18] MEDS ORDERED: LINAGLIPTIN 5MG TABLET PO SCH (09:00)
[2018-01-18] MEDS ORDERED: FOLIC ACID/VITAMIN B COMP W-C TABLET PO SCH (09:00)
[2018-01-18] MEDS: MEDROXYPROGESTERONE ACET 10 MG TABLET PO SCH ×3 (09:00→17:00)
[2018-01-18] MEDS ORDERED: PREDNISONE 10MG TABLET PO SCH (09:00)
[2018-01-18 09:16] LABS: BG BASE EXCESS -11.6 mmol/L (-2.0-2.0); BG CARBOXYHEMOGLOBIN 0.2 % (0.5-1.5); BG FRACTION INSPIRED OXYGEN 28; BG HCO3 ACT 17.3 mmol/L (22.0-26.0); BG METHEMOGLOBIN 0.2 % (0.0-1.5); BG OXYHEMOGLOBIN 90.6 % (94.0-97.0); BG PCO2 52.7 mmHg (35.0-45.0); BG PH 7.134 (7.350-7.450); BG PO2 73.9 mmHg (75.0-100.0); BG SAMPLE SITE LEFT BRACHIAL; BG TOTAL HEMOGLOBIN 10.5 g/dL (12.0-18.0); BG VENT MODE NASAL CANNULA
[2018-01-18] MEDS: INSULIN GLARGINE UD 100 UNITS/ML SYR SUBCUT SCH (10:00)
[2018-01-18] MEDS ORDERED: LIDOCAINE HCL 1% 20ML VIAL (Pyxis) INJ ONE (12:22)
[2018-01-18] MEDS ORDERED: METOCLOPRAMIDE HCL 10MG TABLET PO PRN (15:15)
[2018-01-18] MEDS ORDERED: GABAPENTIN 100MG CAPSULE PO SCH (15:15)
[2018-01-18] MEDS ORDERED: DIPHENHYDRAMINE 25MG CAPSULE PO PRN (15:15)
[2018-01-18] MEDS: DEXT 5%/0.45% NACL 1000ML 1,000 ML IV SCH (15:51)
[2018-01-18 15:55] LABS: BG BASE EXCESS -0.2 mmol/L (-2.0-2.0); BG CARBOXYHEMOGLOBIN 0.6 % (0.5-1.5); BG FRACTION INSPIRED OXYGEN 35; BG METHEMOGLOBIN 0.2 % (0.0-1.5); BG OXYHEMOGLOBIN 97.2 % (94.0-97.0); BG PCO2 50.6 mmHg (35.0-45.0); BG PH 7.329 (7.350-7.450); BG PO2 128.3 mmHg (75.0-100.0); BG SAMPLE SITE RIGHT RADIAL; BG TOTAL HEMOGLOBIN 9.3 g/dL (12.0-18.0); BG VENT MODE MASK - BIPAP; BG VENT RATE 16 set
[2018-01-18] MEDS ORDERED: REPAGLINIDE 1MG TABLET PO SCH (17:00)
[2018-01-18] MEDS ORDERED: INSULIN LISPRO 100 UNITS/ML SUBCUT SCH (17:50)
[2018-01-18 18:45] LABS: NUCLEATED RED BLOOD CELLS 4 /100 WBC; PLATELET ESTIMATE DECREASED
[2018-01-18] MEDS ORDERED: ATORVASTATIN CALCIUM 10MG TABLET PO SCH (21:00)
[2018-01-18] MEDS ORDERED: EPOETIN ALFA 10000UNITS/ML VIAL SUBCUT SCH (21:00)
[2018-01-19] VITALS (31 sets, daily range): BP systolic 69–113; BP diastolic 37–81
[2018-01-19 04:42] LABS: HEMATOCRIT. 24.7 % (36.0-48.0); MEAN CORPUSCULAR HEMOGLOBIN 31.8 pg (28.0-32.0); MEAN PLATELET VOLUME 9.2 fl (7.4-10.4); PLATELET 83 x1000/uL (130-400); RED BLOOD CELL COUNT 2.52 mill/uL (4.2-5.4); RED CELL DISTRIBUTION WIDTH 17.8 % (11.6-14.6)
[2018-01-19] MEDS: DILTIAZEM HCL 60MG TABLET PO SCH ×3 (05:47→11:06)
[2018-01-19] MEDS ORDERED: ASPIRIN 81MG EC TABLET PO SCH (09:00)
[2018-01-19] MEDS ORDERED: CARVEDILOL 12.5MG TABLET PO SCH (09:00)
[2018-01-19] MEDS ORDERED: SEVELAMER CARBONATE 800 MG TABLET PO SCH (09:00)
[2018-01-19] MEDS ORDERED: PANTOPRAZOLE 40MG DR TABLET PO NR (09:00)
[2018-01-19] MEDS ORDERED: MEDROXYPROGESTERONE ACET 10 MG TABLET PO SCH (09:00)
[2018-01-19] MEDS: METHYLPREDNISOLONE SOD SUCC 40 MG/ML VIAL IV SCH (09:00)
[2018-01-19 09:48] LABS: NUCLEATED RED BLOOD CELLS 3 /100 WBC; PLATELET ESTIMATE DECREASED
[2018-01-19] MEDS ORDERED: PSYLLIUM SEED PACKET PO PRN (10:30)
[2018-01-19] MEDS: FOLIC ACID/VITAMIN B COMP W-C TABLET PO SCH (11:01)
[2018-01-19] MEDS: PANTOPRAZOLE SODIUM 40 MG/VIAL IV SCH (11:01)
[2018-01-19] MEDS: DEXT 5%/0.45% NACL 1000ML 1,000 ML IV SCH (11:01)
[2018-01-19] MEDS: DOCUSATE SODIUM 250MG CAPSULE PO SCH (11:01)
[2018-01-19 11:42] LABS: BG BASE EXCESS 2.3 mmol/L (-2.0-2.0); BG CARBOXYHEMOGLOBIN 0.5 % (0.5-1.5); BG DEOXYHEMOGLOBIN 1.8 % (0.0-5.0); BG FRACTION INSPIRED OXYGEN 35; BG HCO3 ACT 27.2 mmol/L (22.0-26.0); BG OXYGEN SATURATION 98.2 % (92.0-98.5); BG OXYHEMOGLOBIN 97.7 % (94.0-97.0); BG PCO2 44.1 mmHg (35.0-45.0); BG PH 7.408 (7.350-7.450); BG PO2 128.1 mmHg (75.0-100.0); BG SAMPLE SITE RIGHT RADIAL; BG TOTAL HEMOGLOBIN 8.4 g/dL (12.0-18.0); BG VENT MODE MASK - BIPAP; BG VENT RATE 16 set
[2018-01-19] MEDS ORDERED: DILTIAZEM HCL 30MG TABLET PO NR (12:45)
[2018-01-19] MEDS: BLOOD SUGAR DIAGNOSTIC STRIP TEST SCH ×4 (12:50→21:27)
[2018-01-19] MEDS ORDERED: LIDOCAINE HCL/PF 1% 2ML VIAL ONE ×2 (13:12→16:21)
[2018-01-19 15:47] LABS: BG BASE EXCESS 0.7 mmol/L (-2.0-2.0); BG CARBOXYHEMOGLOBIN 0.4 % (0.5-1.5); BG DEOXYHEMOGLOBIN 5.9 % (0.0-5.0); BG FRACTION INSPIRED OXYGEN 32; BG HCO3 ACT 25.2 mmol/L (22.0-26.0); BG METHEMOGLOBIN 0.3 % (0.0-1.5); BG OXYGEN SATURATION 94.1 % (92.0-98.5); BG OXYHEMOGLOBIN 93.4 % (94.0-97.0); BG PCO2 39.7 mmHg (35.0-45.0); BG PO2 74.1 mmHg (75.0-100.0); BG SAMPLE SITE RIGHT RADIAL; BG TOTAL HEMOGLOBIN 8.8 g/dL (12.0-18.0); BG VENT MODE NASAL CANNULA
[2018-01-19] MEDS: DILTIAZEM HCL 90MG TABLET PO SCH (18:00)
[2018-01-20] VITALS (74 sets, daily range): BP systolic 54–126; BP diastolic 23–78
[2018-01-20] MEDS: DEXT 5%/0.45% NACL 1000ML 1,000 ML IV SCH ×2 (00:55→19:49)
[2018-01-20] MEDS: DILTIAZEM HCL 90MG TABLET PO SCH ×4 (05:34→17:44)
[2018-01-20 06:41] LABS: CHLORIDE 104 mEq/L (98-107); HEMATOCRIT. 23.8 % (36.0-48.0); HEMOGLOBIN. 7.8 g/dL (12.0-16.0); MEAN CORPUSCULAR HEMOGLOBIN 32.1 pg (28.0-32.0); MEAN CORPUSCULAR VOLUME 97.6 fL (81.0-99.0); MEAN PLATELET VOLUME 9.7 fl (7.4-10.4); PLATELET 65 x1000/uL (130-400); RED BLOOD CELL COUNT 2.44 mill/uL (4.2-5.4); RED CELL DISTRIBUTION WIDTH 17.8 % (11.6-14.6)
[2018-01-20 06:54] LABS: AMMONIA 45 uMol/L (<32)
[2018-01-20] MEDS: BLOOD SUGAR DIAGNOSTIC STRIP TEST SCH ×4 (07:50→19:55)
[2018-01-20] MEDS: DOCUSATE SODIUM 250MG CAPSULE PO SCH (09:00)
[2018-01-20 10:28] LABS: NUCLEATED RED BLOOD CELLS 3 /100 WBC; PLATELET ESTIMATE DECREASED
[2018-01-20] MEDS: PANTOPRAZOLE SODIUM 40 MG/VIAL IV SCH (13:33)
[2018-01-20] MEDS: FOLIC ACID/VITAMIN B COMP W-C TABLET PO SCH (13:33)
[2018-01-20 15:23] LABS: BG BASE EXCESS -1.2 mmol/L (-2.0-2.0); BG CARBOXYHEMOGLOBIN 1.4 % (0.5-1.5); BG DEOXYHEMOGLOBIN 1.5 % (0.0-5.0); BG FRACTION INSPIRED OXYGEN 35; BG HCO3 ACT 23.8 mmol/L (22.0-26.0); BG METHEMOGLOBIN 0.3 % (0.0-1.5); BG OXYGEN SATURATION 98.5 % (92.0-98.5); BG OXYHEMOGLOBIN 96.8 % (94.0-97.0); BG PH 7.382 (7.350-7.450); BG PO2 139.9 mmHg (75.0-100.0); BG SAMPLE SITE RIGHT RADIAL; BG TOTAL HEMOGLOBIN 8.2 g/dL (12.0-18.0); BG VENT MODE MASK - BIPAP; BG VENT RATE 16 set
[2018-01-20] MEDS ORDERED: NOREPINEPHRINE 8 MG in SODIUM CHLORIDE 0.9% 242 ML IV ONE (16:15)
[2018-01-20] MEDS: ONDANSETRON HCL 4MG/2ML VIAL IV PRN (17:39)
[2018-01-21] VITALS (88 sets, daily range): BP systolic 77–149; BP diastolic 30–89
[2018-01-21] MEDS: METHYLPREDNISOLONE SOD SUCC 40 MG/ML VIAL IV SCH ×2 (00:38→09:00)
[2018-01-21 05:51] LABS: HEMATOCRIT. 23.9 % (36.0-48.0); HEMOGLOBIN. 7.8 g/dL (12.0-16.0); MEAN CORPUSCULAR HEMOGLOBIN 32.3 pg (28.0-32.0); MEAN CORPUSCULAR VOLUME 98.5 fL (81.0-99.0); MEAN PLATELET VOLUME 9.9 fl (7.4-10.4); PLATELET 62 x1000/uL (130-400); RED BLOOD CELL COUNT 2.43 mill/uL (4.2-5.4); RED CELL DISTRIBUTION WIDTH 18.2 % (11.6-14.6)
[2018-01-21] MEDS: DILTIAZEM HCL 90MG TABLET PO SCH ×3 (06:00→09:24)
[2018-01-21 08:05] LABS: BG BASE EXCESS -3.5 mmol/L (-2.0-2.0); BG CARBOXYHEMOGLOBIN 1.3 % (0.5-1.5); BG DEOXYHEMOGLOBIN 1.2 % (0.0-5.0); BG FRACTION INSPIRED OXYGEN 35; BG HCO3 ACT 22.7 mmol/L (22.0-26.0); BG METHEMOGLOBIN 0.5 % (0.0-1.5); BG OXYGEN SATURATION 98.8 % (92.0-98.5); BG PCO2 47.2 mmHg (35.0-45.0); BG PRESSURE SUPPORT 7; BG SAMPLE SITE RIGHT RADIAL; BG TOTAL HEMOGLOBIN 7.8 g/dL (12.0-18.0); BG VENT MODE MASK - BIPAP; BG VENT RATE 12 set
[2018-01-21] MEDS: BLOOD SUGAR DIAGNOSTIC STRIP TEST SCH ×4 (08:47→20:34)
[2018-01-21] MEDS: FOLIC ACID/VITAMIN B COMP W-C TABLET PO SCH (08:48)
[2018-01-21] MEDS: PANTOPRAZOLE SODIUM 40 MG/VIAL IV SCH (08:48)
[2018-01-21] MEDS: DOCUSATE SODIUM 250MG CAPSULE PO SCH (08:48)
[2018-01-21] MEDS ORDERED: METRONIDAZOLE 500 MG PREMIX 100 ML IV SCH (09:15)
[2018-01-21 09:18] LABS: BG BASE EXCESS -3.7 mmol/L (-2.0-2.0); BG CARBOXYHEMOGLOBIN 0.6 % (0.5-1.5); BG DEOXYHEMOGLOBIN 3.1 % (0.0-5.0); BG HCO3 ACT 22.7 mmol/L (22.0-26.0); BG METHEMOGLOBIN 0.1 % (0.0-1.5); BG OXYGEN SATURATION 96.9 % (92.0-98.5); BG OXYHEMOGLOBIN 96.2 % (94.0-97.0); BG PCO2 47.5 mmHg (35.0-45.0); BG PH 7.297 (7.350-7.450); BG PO2 104.9 mmHg (75.0-100.0); BG SAMPLE SITE RIGHT RADIAL; BG TOTAL HEMOGLOBIN 8.6 g/dL (12.0-18.0); BG VENT MODE NASAL CANNULA
[2018-01-21] MEDS ORDERED: LIDOCAINE HCL/PF 1% 2ML VIAL ONE (09:31)
[2018-01-21] MEDS: ONDANSETRON HCL 4MG/2ML VIAL IV PRN (09:47)
[2018-01-21 10:56] LABS: PLATELET ESTIMATE MARKEDLY DECREASED
[2018-01-21] MEDS ORDERED: DEXTROSE 50% WATER 50ML SYRINGE IV PRN (11:30)
[2018-01-21] MEDS: METRONIDAZOLE 500 MG PREMIX 100 ML IV SCH ×2 (11:58→20:34)
[2018-01-21] MEDS: INSULIN LISPRO 100 UNITS/ML SUBCUT SCH ×3 (11:59→20:34)
[2018-01-21] MEDS: DILTIAZEM HCL 60MG TABLET PO SCH ×3 (12:00→23:59)
[2018-01-21 16:12] LABS: BG CARBOXYHEMOGLOBIN 0.7 % (0.5-1.5); BG DEOXYHEMOGLOBIN 2.1 % (0.0-5.0); BG HCO3 ACT 25.4 mmol/L (22.0-26.0); BG METHEMOGLOBIN 0.2 % (0.0-1.5); BG OXYGEN SATURATION 97.9 % (92.0-98.5); BG PCO2 44.9 mmHg (35.0-45.0); BG PO2 114.3 mmHg (75.0-100.0); BG SAMPLE SITE RIGHT RADIAL; BG TOTAL HEMOGLOBIN 8.1 g/dL (12.0-18.0); BG VENT MODE MASK - BIPAP; BG VENT RATE 16 set
[2018-01-21] MEDS ORDERED: EPOETIN ALFA 10000UNITS/ML VIAL SUBCUT SCH (21:00)
[2018-01-22] VITALS (87 sets, daily range): BP systolic 47–144; BP diastolic 18–98
[2018-01-22 05:46] LABS: HEMATOCRIT. 23.3 % (36.0-48.0); HEMOGLOBIN. 7.5 g/dL (12.0-16.0); MEAN CORPUSCULAR HEMOGLOBIN 32.4 pg (28.0-32.0); MEAN CORPUSCULAR VOLUME 100.7 fL (81.0-99.0); MEAN PLATELET VOLUME 10.5 fl (7.4-10.4); PLATELET 53 x1000/uL (130-400); RED BLOOD CELL COUNT 2.32 mill/uL (4.2-5.4)
[2018-01-22 06:02] LABS: CHLORIDE 110 mEq/L (98-107)
[2018-01-22 06:10] LABS: PHOSPHORUS 3.7 mg/dL (2.5-4.9)
[2018-01-22] MEDS: DILTIAZEM HCL 60MG TABLET PO SCH ×3 (07:03→18:00)
[2018-01-22] MEDS: INSULIN LISPRO 100 UNITS/ML SUBCUT SCH ×4 (08:12→21:30)
[2018-01-22] MEDS: BLOOD SUGAR DIAGNOSTIC STRIP TEST SCH ×4 (08:12→21:26)
[2018-01-22] MEDS: DOCUSATE SODIUM 250MG CAPSULE PO SCH (08:45)
[2018-01-22] MEDS: PANTOPRAZOLE SODIUM 40 MG/VIAL IV SCH (08:45)
[2018-01-22] MEDS: FOLIC ACID/VITAMIN B COMP W-C TABLET PO SCH (08:45)
[2018-01-22] MEDS: METRONIDAZOLE 500 MG PREMIX 100 ML IV SCH ×2 (08:46→21:30)
[2018-01-22] MEDS ORDERED: LIDOCAINE HCL/PF 1% 2ML VIAL ONE (11:04)
[2018-01-22 12:41] LABS: BG BASE EXCESS -3.7 mmol/L (-2.0-2.0); BG CARBOXYHEMOGLOBIN 0.8 % (0.5-1.5); BG DEOXYHEMOGLOBIN 7.7 % (0.0-5.0); BG FRACTION INSPIRED OXYGEN 40; BG HCO3 ACT 22.4 mmol/L (22.0-26.0); BG METHEMOGLOBIN 0.2 % (0.0-1.5); BG OXYGEN SATURATION 92.2 % (92.0-98.5); BG OXYHEMOGLOBIN 91.3 % (94.0-97.0); BG PH 7.306 (7.350-7.450); BG PO2 69.4 mmHg (75.0-100.0); BG SAMPLE SITE RIGHT RADIAL; BG TOTAL HEMOGLOBIN 8.2 g/dL (12.0-18.0); BG VENT MODE NASAL CANNULA
[2018-01-22 14:06] LABS: NUCLEATED RED BLOOD CELLS 2 /100 WBC; PLATELET ESTIMATE DECREASED
[2018-01-23] VITALS (51 sets, daily range): BP systolic 96–137; BP diastolic 32–88
[2018-01-23] MEDS: DILTIAZEM HCL 60MG TABLET PO SCH ×5 (00:28→23:54)
[2018-01-23] MEDS: BLOOD SUGAR DIAGNOSTIC STRIP TEST SCH ×4 (07:51→21:17)
[2018-01-23 08:06] LABS: HEMATOCRIT. 22.9 % (36.0-48.0); HEMOGLOBIN. 7.3 g/dL (12.0-16.0); MEAN CORPUSCULAR VOLUME 100.8 fL (81.0-99.0); MEAN PLATELET VOLUME 10.7 fl (7.4-10.4); PLATELET 68 x1000/uL (130-400); RED BLOOD CELL COUNT 2.27 mill/uL (4.2-5.4)
[2018-01-23] MEDS: METRONIDAZOLE 500 MG PREMIX 100 ML IV SCH ×2 (08:19→21:15)
[2018-01-23] MEDS: FOLIC ACID/VITAMIN B COMP W-C TABLET PO SCH (08:19)
[2018-01-23] MEDS: DOCUSATE SODIUM 250MG CAPSULE PO SCH (08:19)
[2018-01-23] MEDS: PANTOPRAZOLE SODIUM 40 MG/VIAL IV SCH (08:19)
[2018-01-23] MEDS: INSULIN LISPRO 100 UNITS/ML SUBCUT SCH ×4 (08:21→21:17)
[2018-01-23 09:06] LABS: BG BASE EXCESS -1.8 mmol/L (-2.0-2.0); BG CARBOXYHEMOGLOBIN 0.4 % (0.5-1.5); BG DEOXYHEMOGLOBIN 6.3 % (0.0-5.0); BG FRACTION INSPIRED OXYGEN 40; BG HCO3 ACT 24.2 mmol/L (22.0-26.0); BG METHEMOGLOBIN 0.4 % (0.0-1.5); BG OXYGEN SATURATION 93.6 % (92.0-98.5); BG OXYHEMOGLOBIN 92.9 % (94.0-97.0); BG PCO2 47.5 mmHg (35.0-45.0); BG PH 7.325 (7.350-7.450); BG PO2 76.8 mmHg (75.0-100.0); BG SAMPLE SITE RIGHT BRACHIAL; BG VENT MODE NASAL CANNULA
[2018-01-23 10:07] LABS: NUCLEATED RED BLOOD CELLS 4 /100 WBC
[2018-01-23 10:08] LABS: PLATELET ESTIMATE DECREASED
[2018-01-23] MEDS ORDERED: LIDOCAINE HCL/PF 1% 2ML VIAL ONE ×2 (12:28→14:36)
[2018-01-23 15:44] LABS: BG CARBOXYHEMOGLOBIN 0.3 % (0.5-1.5); BG FRACTION INSPIRED OXYGEN 40; BG METHEMOGLOBIN 0.3 % (0.0-1.5); BG OXYHEMOGLOBIN 93.4 % (94.0-97.0); BG PCO2 52.6 mmHg (35.0-45.0); BG PH 7.277 (7.350-7.450); BG PO2 75.4 mmHg (75.0-100.0); BG SAMPLE SITE RIGHT BRACHIAL; BG TOTAL HEMOGLOBIN 9.8 g/dL (12.0-18.0); BG VENT MODE NASAL CANNULA
[2018-01-23 18:19] LABS: BG CARBOXYHEMOGLOBIN 0.6 % (0.5-1.5); BG DEOXYHEMOGLOBIN 3.6 % (0.0-5.0); BG FRACTION INSPIRED OXYGEN 35; BG HCO3 ACT 23.4 mmol/L (22.0-26.0); BG METHEMOGLOBIN 0.3 % (0.0-1.5); BG OXYGEN SATURATION 96.4 % (92.0-98.5); BG OXYHEMOGLOBIN 95.5 % (94.0-97.0); BG PCO2 48.2 mmHg (35.0-45.0); BG PH 7.304 (7.350-7.450); BG PO2 91.1 mmHg (75.0-100.0); BG SAMPLE SITE RIGHT RADIAL; BG TOTAL HEMOGLOBIN 9.8 g/dL (12.0-18.0); BG VENT MODE MASK - BIPAP
[2018-01-23] MEDS ORDERED: EPOETIN ALFA 10000UNITS/ML VIAL SUBCUT SCH (21:00)
[2018-01-24] VITALS (30 sets, daily range): BP systolic 89–136; BP diastolic 37–86
[2018-01-24] MEDS: DIPHENHYDRAMINE 12.5MG/5ML UDC PO PRN (03:01)
[2018-01-24 05:40] LABS: BASOPHILS % 0.6 % (0.0-2.0); EOSINOPHILS % 0.8 % (0.0-5.0); HEMATOCRIT. 28.6 % (36.0-48.0); HEMOGLOBIN. 9.2 g/dL (12.0-16.0); LYMPHOCYTES % 7.8 % (20.0-50.0); MEAN CORPUSCULAR HEMOGLOBIN 31.8 pg (28.0-32.0); MEAN CORPUSCULAR VOLUME 99.4 fL (81.0-99.0); MEAN PLATELET VOLUME 9.8 fl (7.4-10.4); MONOCYTES % 7.1 % (2.0-8.0); NEUTROPHILS % 83.7 % (40.0-76.0); PLATELET 68 x1000/uL (130-400); RED BLOOD CELL COUNT 2.88 mill/uL (4.2-5.4); RED CELL DISTRIBUTION WIDTH 21.1 % (11.6-14.6)
[2018-01-24] MEDS: DILTIAZEM HCL 60MG TABLET PO SCH ×3 (05:50→18:39)
[2018-01-24 06:03] LABS: PHOSPHORUS 3.6 mg/dL (2.5-4.9)
[2018-01-24] MEDS: BLOOD SUGAR DIAGNOSTIC STRIP TEST SCH ×4 (08:21→20:35)
[2018-01-24] MEDS: PANTOPRAZOLE SODIUM 40 MG/VIAL IV SCH (08:44)
[2018-01-24] MEDS: FOLIC ACID/VITAMIN B COMP W-C TABLET PO SCH (08:45)
[2018-01-24] MEDS: DOCUSATE SODIUM 250MG CAPSULE PO SCH (08:45)
[2018-01-24] MEDS: INSULIN LISPRO 100 UNITS/ML SUBCUT SCH ×4 (08:46→20:43)
[2018-01-24] MEDS: METRONIDAZOLE 500 MG PREMIX 100 ML IV SCH ×2 (09:06→20:32)
[2018-01-24 09:22] LABS: BG BASE EXCESS -5.9 mmol/L (-2.0-2.0); BG CARBOXYHEMOGLOBIN 0.5 % (0.5-1.5); BG DEOXYHEMOGLOBIN 3.4 % (0.0-5.0); BG FRACTION INSPIRED OXYGEN 35; BG METHEMOGLOBIN 0.4 % (0.0-1.5); BG OXYGEN SATURATION 96.6 % (92.0-98.5); BG OXYHEMOGLOBIN 95.7 % (94.0-97.0); BG PCO2 41.2 mmHg (35.0-45.0); BG PH 7.304 (7.350-7.450); BG PO2 97.8 mmHg (75.0-100.0); BG SAMPLE SITE RIGHT BRACHIAL; BG TOTAL HEMOGLOBIN 9.3 g/dL (12.0-18.0); BG VENT MODE MASK - BIPAP; BG VENT RATE 18 set
[2018-01-24] MEDS: IPRATROPIUM/ALBUTEROL 0.5-3(2.5)MG/3ML NEB HHN SCH ×4 (12:45→23:18)
[2018-01-24] MEDS: ACETAMINOPHEN 650MG/20.3ML UDC PO PRN (13:50)
[2018-01-24] MEDS: INSULIN GLARGINE UD 100 UNITS/ML SYR SUBCUT SCH (21:25)
[2018-01-25] VITALS (12 sets, daily range): BP systolic 90–123; BP diastolic 34–71
[2018-01-25] MEDS: DILTIAZEM HCL 60MG TABLET PO SCH ×4 (00:07→17:46)
[2018-01-25] MEDS: ONDANSETRON HCL 4MG/2ML VIAL IV PRN (00:33)
[2018-01-25 07:11] LABS: BG BASE EXCESS -3.7 mmol/L (-2.0-2.0); BG DEOXYHEMOGLOBIN 2.5 % (0.0-5.0); BG HCO3 ACT 23.3 mmol/L (22.0-26.0); BG METHEMOGLOBIN 0.2 % (0.0-1.5); BG OXYGEN SATURATION 97.5 % (92.0-98.5); BG OXYHEMOGLOBIN 96.3 % (94.0-97.0); BG PCO2 51.9 mmHg (35.0-45.0); BG PO2 107.2 mmHg (75.0-100.0); BG SAMPLE SITE RIGHT RADIAL; BG TOTAL HEMOGLOBIN 9.6 g/dL (12.0-18.0); BG VENT MODE MASK - BIPAP; BG VENT RATE 18 set
[2018-01-25] MEDS: BLOOD SUGAR DIAGNOSTIC STRIP TEST SCH ×4 (07:30→21:43)
[2018-01-25] MEDS: INSULIN LISPRO 100 UNITS/ML SUBCUT SCH ×4 (08:00→21:56)
[2018-01-25] MEDS: FOLIC ACID/VITAMIN B COMP W-C TABLET PO SCH (09:00)
[2018-01-25] MEDS: DOCUSATE SODIUM 250MG CAPSULE PO SCH (09:00)
[2018-01-25] MEDS: PANTOPRAZOLE SODIUM 40 MG/VIAL IV SCH (10:40)
[2018-01-25] MEDS: INSULIN GLARGINE UD 100 UNITS/ML SYR SUBCUT SCH ×2 (10:42→21:57)
[2018-01-25] MEDS ORDERED: LIDOCAINE HCL/PF 1% 2ML VIAL ONE (11:52)
[2018-01-25] MEDS: IPRATROPIUM/ALBUTEROL 0.5-3(2.5)MG/3ML NEB HHN SCH ×3 (12:20→20:29)
[2018-01-25] MEDS: METRONIDAZOLE 500 MG PREMIX 100 ML IV SCH ×2 (13:00→21:55)
[2018-01-25 14:40] LABS: HEMATOCRIT. 26.4 % (36.0-48.0); HEMOGLOBIN. 8.6 g/dL (12.0-16.0); MEAN CORPUSCULAR HEMOGLOBIN 31.9 pg (28.0-32.0); MEAN CORPUSCULAR VOLUME 98.1 fL (81.0-99.0); MEAN PLATELET VOLUME 10.5 fl (7.4-10.4); PLATELET 64 x1000/uL (130-400); RED CELL DISTRIBUTION WIDTH 20.8 % (11.6-14.6)
[2018-01-25 18:23] LABS: NUCLEATED RED BLOOD CELLS 1 /100 WBC; PLATELET ESTIMATE MARKEDLY DECREASED
[2018-01-26] VITALS (11 sets, daily range): BP systolic 94–123; BP diastolic 46–84
[2018-01-26] MEDS: IPRATROPIUM/ALBUTEROL 0.5-3(2.5)MG/3ML NEB HHN SCH ×6 (00:41→20:59)
[2018-01-26] MEDS: DILTIAZEM HCL 60MG TABLET PO SCH ×4 (06:00→18:00)
[2018-01-26 06:04] LABS: BASOPHILS % 0.4 % (0.0-2.0); EOSINOPHILS % 1.2 % (0.0-5.0); HEMATOCRIT. 26.6 % (36.0-48.0); HEMOGLOBIN. 8.3 g/dL (12.0-16.0); LYMPHOCYTES % 9.1 % (20.0-50.0); MEAN CORPUSCULAR HEMOGLOBIN 31.2 pg (28.0-32.0); MEAN CORPUSCULAR VOLUME 100.3 fL (81.0-99.0); MEAN PLATELET VOLUME 10.1 fl (7.4-10.4); NEUTROPHILS % 81.3 % (40.0-76.0); PLATELET 68 x1000/uL (130-400); RED BLOOD CELL COUNT 2.65 mill/uL (4.2-5.4); RED CELL DISTRIBUTION WIDTH 21.6 % (11.6-14.6)
[2018-01-26] MEDS: BLOOD SUGAR DIAGNOSTIC STRIP TEST SCH ×4 (07:59→20:58)
[2018-01-26] MEDS: INSULIN LISPRO 100 UNITS/ML SUBCUT SCH ×4 (07:59→21:06)
[2018-01-26] MEDS: FOLIC ACID/VITAMIN B COMP W-C TABLET PO SCH (08:09)
[2018-01-26] MEDS: PANTOPRAZOLE SODIUM 40 MG/VIAL IV SCH (08:09)
[2018-01-26] MEDS: DOCUSATE SODIUM 250MG CAPSULE PO SCH (08:09)
[2018-01-26] MEDS: METRONIDAZOLE 500 MG PREMIX 100 ML IV SCH ×2 (08:10→20:46)
[2018-01-26] MEDS: INSULIN GLARGINE UD 100 UNITS/ML SYR SUBCUT SCH ×2 (10:14→21:29)
[2018-01-26] MEDS ORDERED: LIDOCAINE HCL/PF 1% 2ML VIAL ONE (11:32)
[2018-01-26] MEDS: ACETAMINOPHEN 650MG/20.3ML UDC PO PRN (20:54)
[2018-01-27] VITALS (11 sets, daily range): BP systolic 93–128; BP diastolic 42–73
[2018-01-27] MEDS: IPRATROPIUM/ALBUTEROL 0.5-3(2.5)MG/3ML NEB HHN SCH ×6 (00:59→20:56)
[2018-01-27] MEDS: INSULIN LISPRO 100 UNITS/ML SUBCUT SCH ×4 (08:00→22:17)
[2018-01-27] MEDS: BLOOD SUGAR DIAGNOSTIC STRIP TEST SCH ×4 (08:29→20:48)
[2018-01-27 08:54] LABS: BASOPHILS % 0.4 % (0.0-2.0); EOSINOPHILS % 1.5 % (0.0-5.0); HEMATOCRIT. 27.2 % (36.0-48.0); HEMOGLOBIN. 8.9 g/dL (12.0-16.0); LYMPHOCYTES % 7.8 % (20.0-50.0); MEAN CORPUSCULAR HEMOGLOBIN 32.2 pg (28.0-32.0); MEAN CORPUSCULAR VOLUME 98.4 fL (81.0-99.0); MEAN PLATELET VOLUME 9.6 fl (7.4-10.4); MONOCYTES % 8.6 % (2.0-8.0); NEUTROPHILS % 81.7 % (40.0-76.0); PLATELET 70 x1000/uL (130-400); RED BLOOD CELL COUNT 2.77 mill/uL (4.2-5.4); RED CELL DISTRIBUTION WIDTH 21.1 % (11.6-14.6)
[2018-01-27] MEDS: METRONIDAZOLE 500 MG PREMIX 100 ML IV SCH ×2 (09:46→20:48)
[2018-01-27] MEDS: DOCUSATE SODIUM 250MG CAPSULE PO SCH (09:46)
[2018-01-27] MEDS: FOLIC ACID/VITAMIN B COMP W-C TABLET PO SCH (09:46)
[2018-01-27] MEDS: PANTOPRAZOLE SODIUM 40 MG/VIAL IV SCH (09:46)
[2018-01-27] MEDS: INSULIN GLARGINE UD 100 UNITS/ML SYR SUBCUT SCH (09:50)
[2018-01-27] MEDS: ACETAMINOPHEN 650MG/20.3ML UDC PO PRN ×2 (09:57→22:44)
[2018-01-27 10:00] LABS: BG BASE EXCESS -0.4 mmol/L (-2.0-2.0); BG CARBOXYHEMOGLOBIN 0.6 % (0.5-1.5); BG DEOXYHEMOGLOBIN 5.1 % (0.0-5.0); BG FRACTION INSPIRED OXYGEN 36; BG HCO3 ACT 25.4 mmol/L (22.0-26.0); BG OXYGEN SATURATION 94.9 % (92.0-98.5); BG OXYHEMOGLOBIN 94.3 % (94.0-97.0); BG PCO2 47.3 mmHg (35.0-45.0); BG PH 7.348 (7.350-7.450); BG PO2 76.8 mmHg (75.0-100.0); BG SAMPLE SITE RIGHT BRACHIAL; BG TOTAL HEMOGLOBIN 9.8 g/dL (12.0-18.0); BG VENT MODE NASAL CANNULA
[2018-01-27] MEDS ORDERED: POTASSIUM CHLORIDE 20MEQ TABLET SR PO SCH (10:15)
[2018-01-27] MEDS: DILTIAZEM HCL 60MG TABLET PO SCH ×3 (12:00→18:49)
[2018-01-27] MEDS ORDERED: INSULIN GLARGINE UD 100 UNITS/ML SYR SUBCUT SCH (22:00)
[2018-01-27] MEDS: DIPHENHYDRAMINE 12.5MG/5ML UDC PO PRN (23:07)
[2018-01-28] VITALS (11 sets, daily range): BP systolic 98–126; BP diastolic 42–72
[2018-01-28] MEDS: IPRATROPIUM/ALBUTEROL 0.5-3(2.5)MG/3ML NEB HHN SCH ×6 (00:29→20:04)
[2018-01-28] MEDS: DILTIAZEM HCL 60MG TABLET PO SCH ×4 (06:00→17:35)
[2018-01-28] MEDS: BLOOD SUGAR DIAGNOSTIC STRIP TEST SCH ×4 (07:30→21:48)
[2018-01-28] MEDS: INSULIN LISPRO 100 UNITS/ML SUBCUT SCH ×4 (08:00→21:44)
[2018-01-28] MEDS ORDERED: PANTOPRAZOLE SODIUM 40 MG/VIAL IV SCH (09:00)
[2018-01-28] MEDS ORDERED: INSULIN GLARGINE UD 100 UNITS/ML SYR SUBCUT SCH ×2 (10:00→22:00)
[2018-01-28] MEDS: FOLIC ACID/VITAMIN B COMP W-C TABLET PO SCH (10:38)
[2018-01-28] MEDS: PANTOPRAZOLE 40MG DR TABLET PO SCH (10:38)
[2018-01-28] MEDS: DOCUSATE SODIUM 250MG CAPSULE PO SCH (10:38)
[2018-01-28] MEDS ORDERED: DIGOXIN 500MCG/2ML AMP IV NR (12:30)
[2018-01-28] MEDS: DIPHENHYDRAMINE 12.5MG/5ML UDC PO PRN (18:30)
[2018-01-28] MEDS: ACETAMINOPHEN 650MG/20.3ML UDC PO PRN (18:31)
[2018-01-29] VITALS (13 sets, daily range): BP systolic 90–131; BP diastolic 33–79
[2018-01-29] MEDS: DILTIAZEM HCL 60MG TABLET PO SCH ×3 (00:16→13:44)
[2018-01-29] MEDS: IPRATROPIUM/ALBUTEROL 0.5-3(2.5)MG/3ML NEB HHN SCH ×5 (00:37→16:32)
[2018-01-29] MEDS: PANTOPRAZOLE 40MG DR TABLET PO SCH (06:41)
[2018-01-29] MEDS: BLOOD SUGAR DIAGNOSTIC STRIP TEST SCH ×2 (07:58→13:00)
[2018-01-29] MEDS: FOLIC ACID/VITAMIN B COMP W-C TABLET PO SCH (09:12)
[2018-01-29] MEDS: DOCUSATE SODIUM 250MG CAPSULE PO SCH (09:12)
[2018-01-29] MEDS: INSULIN LISPRO 100 UNITS/ML SUBCUT SCH ×2 (09:13→13:45)
[2018-01-29] MEDS ORDERED: INSULIN GLARGINE UD 100 UNITS/ML SYR SUBCUT SCH (10:00)
[2018-01-29] MEDS ORDERED: DILT60TA41 GT (10:20)
[2018-01-29] MEDS ORDERED: LANTUSUD SUBCUT (10:20)
[2018-01-29] MEDS ORDERED: DOCU250C14 GT (10:20)
[2018-01-29] MEDS ORDERED: IPRA3AMP9 HHN (10:20)
== END 2018-01-29 17:55 | DRG 291 ==
LOC: ER 12:59 → 8WST 18:01 → EDBEDREQ 18:05 → ENRESERV 18:53 → CVICU 01-18 13:56 → 5EST 01-24 17:20
PROC: 05HY33Z Insertion of Infusion Device into Upper Vein, Percutaneous Approach (ICD-10-PCS; principal; 2018-01-18)
PROC: 5A09457 Assistance with Respiratory Ventilation, 24-96 Consecutive Hours, Continuous Positive Airway Pressure (ICD-10-PCS; 2018-01-18)
PROC: 5A1D70Z Performance of Urinary Filtration, Intermittent, Less than 6 Hours Per Day (ICD-10-PCS; 2018-01-18)
PROC: 5A1D70Z Performance of Urinary Filtration, Intermittent, Less than 6 Hours Per Day (ICD-10-PCS; 2018-01-19)
PROC: 5A09557 Assistance with Respiratory Ventilation, Greater than 96 Consecutive Hours, Continuous Positive Airway Pressure (ICD-10-PCS; 2018-01-20)
PROC: 5A1D70Z Performance of Urinary Filtration, Intermittent, Less than 6 Hours Per Day (ICD-10-PCS; 2018-01-20)
PROC: 5A1D70Z Performance of Urinary Filtration, Intermittent, Less than 6 Hours Per Day (ICD-10-PCS; 2018-01-21)
PROC: 30233N1 Transfusion of Nonautologous Red Blood Cells into Peripheral Vein, Percutaneous Approach (ICD-10-PCS; 2018-01-23)
PROC: 5A1D70Z Performance of Urinary Filtration, Intermittent, Less than 6 Hours Per Day (ICD-10-PCS; 2018-01-23)
PROC: 5A1D70Z Performance of Urinary Filtration, Intermittent, Less than 6 Hours Per Day (ICD-10-PCS; 2018-01-25)
PROC: 5A09357 Assistance with Respiratory Ventilation, Less than 24 Consecutive Hours, Continuous Positive Airway Pressure (ICD-10-PCS; 2018-01-27)
PROC: 5A1D70Z Performance of Urinary Filtration, Intermittent, Less than 6 Hours Per Day (ICD-10-PCS; 2018-01-27)
PROC: 5A1D70Z Performance of Urinary Filtration, Intermittent, Less than 6 Hours Per Day (ICD-10-PCS; 2018-01-29)
DX: I13.2 Hypertensive heart and chronic kidney disease with heart failure and with stage 5 chronic kidney disease, or end stage renal disease (principal); N18.6 End stage renal disease; J96.20 Acute and chronic respiratory failure, unspecified whether with hypoxia or hypercapnia; E87.4 Mixed disorder of acid-base balance; G92 Toxic encephalopathy; I47.2 Ventricular tachycardia; E46 Unspecified protein-calorie malnutrition; J96.11 Chronic respiratory failure with hypoxia; I50.41 Acute combined systolic (congestive) and diastolic (congestive) heart failure; C34.31 Malignant neoplasm of lower lobe, right bronchus or lung; N25.81 Secondary hyperparathyroidism of renal origin; J44.1 Chronic obstructive pulmonary disease with (acute) exacerbation; Z68.41 Body mass index [BMI] 40.0-44.9, adult; D69.6 Thrombocytopenia, unspecified; I42.0 Dilated cardiomyopathy; E11.22 Type 2 diabetes mellitus with diabetic chronic kidney disease; E87.5 Hyperkalemia; D63.1 Anemia in chronic kidney disease; D35.01 Benign neoplasm of right adrenal gland; R62.7 Adult failure to thrive; E78.5 Hyperlipidemia, unspecified; E87.6 Hypokalemia; F17.200 Nicotine dependence, unspecified, uncomplicated; F41.9 Anxiety disorder, unspecified; I07.1 Rheumatic tricuspid insufficiency; I25.10 Atherosclerotic heart disease of native coronary artery without angina pectoris; I27.20 Pulmonary hypertension, unspecified; I48.2 Chronic atrial fibrillation; K59.00 Constipation, unspecified; K80.20 Calculus of gallbladder without cholecystitis without obstruction; Z96.641 Presence of right artificial hip joint; Z96.659 Presence of unspecified artificial knee joint; J44.9 Chronic obstructive pulmonary disease, unspecified; M19.90 Unspecified osteoarthritis, unspecified site; Z51.5 Encounter for palliative care; Z86.73 Personal history of transient ischemic attack (TIA), and cerebral infarction without residual deficits; Z91.15 Patient's noncompliance with renal dialysis; Z91.19 Patient's noncompliance with other medical treatment and regimen; Z92.3 Personal history of irradiation; Z95.810 Presence of automatic (implantable) cardiac defibrillator; Z99.2 Dependence on renal dialysis; Z99.3 Dependence on wheelchair; Z99.81 Dependence on supplemental oxygen; Z88.8 Allergy status to other drugs, medicaments and biological substances; Z88.1 Allergy status to other antibiotic agents; Z91.013 Allergy to seafood; Z79.82 Long term (current) use of aspirin; Z79.4 Long term (current) use of insulin; Z79.899 Other long term (current) drug therapy
CPT/HCPCS: 36415; 36569; 36600; 71045; 74176; 77001; 80048; 80053; 82140; 82375; 82805; 82962; 83605; 83690; 83735; 83880; 84100; 84484; 85025; 85379; 85610; 85730; 86850; 86900; 86920; 87040; 93005; 93970; 94640; 94660; 96374; 97110; 97163; 97167; 97530; 97535; 99291; C1725; C9113; G0482; J0885; J1160; J1642; J1815; J2405; J2920; J3490; J7030; J7040; J7050; J7620; P9016; Q0163